=== PATIENT | male | born 1955 | race Hispanic/Latino ===

== ENCOUNTER 2020-04-24 18:04 | Inpatient (IN) | payer MEDICARE, OTHER ==
[~2020-04-24 18:04] MED LIST: Iopamidol-370 76% 500 ML 1 ML ONE
[2020-04-24] MEDS ORDERED: Boostrix 0.5 ML (Tdap) VIAL ONE (18:10)
[2020-04-24 18:28] LABS: #Eosinphils 0.2 thou/uL (0.0-0.7); #Lymphocytes 3.6 thou/uL (1.20-3.40); #Monocytes 0.8 thou/uL (0.11-0.59); #Neutrophils 5.2 thou/uL (1.40-6.50); %Basophils 0.1 % (0.0-1.0); %Eosinophils 2.5 % (0.0-10.0); %Lymphocytes 36.6 % (21.0-51.0); %Monocytes 7.9 % (0.0-10.0); Mean Corpuscular HGB CONC 34.4 g/dL (32.0-36.0); Mean Corpuscular Hemoglobin 31.3 pg (27.0-31.0); Mean Corpuscular Volume 90.9 fL (78.0-98.0); Mean Platelet Volume 8.3 fL (7.4-10.4); Platelet Count 190 thou/uL (130-400); RBC Distribution Width 11.5 % (11.5-14.5); Red Blood Cell (RBC) Count 4.78 mill/uL (4.70-6.10); White Blood Cell (WBC) Count 9.8 thou/uL (4.8-10.8)
[2020-04-24 18:33] LABS: Prothrombin Time 13.1 sec (12.0-14.7)
[2020-04-24 18:34] LABS: PTT 31.3 sec (22.9-36.1)
--- NOTE | 2020-04-24 18:50 | CT ---
CT cervical spine without contrast: 04/23/2020 COMPARISON: None HISTORY: Injury, trauma, pain TECHNIQUE: Axial CT imaging at 1.25 mm intervals through the cervical spine without contrast. Coronal and sagittal reformatted imaging obtained FINDINGS: The visualized lung apices appear unremarkable. The occipital condyles, dens, and C1-2 articulation appear within normal limits. The atlantoaxial interspace demonstrates degenerative change. The craniocervical junction and the cer vicothoracic junction demonstrate no acute findings. No prevertebral soft tissue swelling. No anterolisthesis or retrolisthesis. Multilevel cervical spine disc space narrowing and posterior osteo phyte formation noted, most prominent at C3-4 and C6-7. There is no evidence for a displaced fracture or dislocation. IMPRESSION: Cervical spine degenerative change. No acute fracture or dislocation. Results called to Dr. Davalos at 6:45 PM 04/24/2020
--- NOTE | 2020-04-24 18:53 | CT ---
Head CT without contrast: 04/24/2020 COMPARISON: None HISTORY: Injury, trauma, pain TECHNIQUE: Axial CT imaging at 2.5 mm intervals from vertex through skull base without contrast. Shashi nal and sagittal reformatted imaging obtained. FINDINGS: There is a prominent area of soft tissue swelling/subcutaneous hematoma in the supraorbital right frontal scalp with associated foci of gas consistent with laceration. The imaged paranasal sinuses and mastoid air cells are unremarkable aside from partial opacification of the posterior ethm oid air cells on the left. There is no displaced calvarial fracture. There is no midline shift or mass effect. There is no ventricular enlargement. There is small volume subarachnoid hemorrhage in the left frontal region superiorly, most prominent o n axial image 53. IMPRESSION: Small volume subarachnoid blood superiorly within the left frontal region. Prominent scal p laceration/subcutaneous hematoma in the right frontal region. Dr. Davalos made aware at 6:48 PM 04/24/2020
[2020-04-24 19:00] LABS: ALT (SGPT) 31 U/L (8-55); AST (SGOT) 25 U/L (5-34); Albumin 3.6 g/dL (3.4-4.8); Alkaline Phosphatase 101 U/L (40-110); Anion Gap 16 mmol/L (10-20); BUN (Urea Nitrogen) 16 mg/dL (8.4-25.7); Bilirubin, Total 0.9 mg/dL (0.2-1.2); Calc. Creatinine Clearance 0 mL/min (70-130); Calcium 8.6 mg/dL (7.8-10.44); Carbon Dioxide 19 mmol/L (23-31); Chloride 104 mmol/L (98-107); Globulin 3.6 g/dL (2.4-3.5); Glucose 214 mg/dL (80-115); Lipase 24 U/L (8-78); Potassium 4.1 mmol/L (3.5-5.1); Protein, Total 7.2 g/dL (5.8-8.1); Sodium 135 mmol/L (136-145)
--- NOTE | 2020-04-24 19:01 | CT ---
CT of chest, abdomen, pelvis, thoracic spine, and lumbar spine: 04/24/2020 COMPARISON: None HISTORY: Injury, trauma, pain TECHNIQUE: Axial CT imaging is obtained at 5 mm intervals from the thoracic inlet through the pubic s ymphysis with intravenous contrast. Coronal and sagittal reformatted imaging of the chest, abdomen, pelvis, thoracic spine, and lumbar spine provided. FINDINGS: Midline sternotomy wires are present. Mediastinal clips are noted. There are disconnected e picardial pacing leads present. No axillary, hilar, or mediastinal lymphadenopathy. No pleural, pericardial, or mediastinal fluid. No pneumothorax. The lung parenchyma demonstrates no acute abnormality on either side. The extraspinal osseous structures of the chest demonstrate no acute findings. A old posterior left 1 0th rib fracture is noted. The vascular structures of the chest demonstrate no acute findings. There is atherosclerotic calcific ation of the descending thoracic aorta. No free intraperitoneal air or fluid is seen. The liver, gallbladder, spleen, pancreas, and adrenal glands are unremarkable. There is a small cyst in the upper pole of the right kidney. Left kidney appears unremarkable. The prostate gland appears heterogeneous and enlarged, extending into the region of the urinary bladder base. There is a large f at-containing inguinal hernia on the left measuring 6.7 x 6.2 cm in AP/transverse dimension. Limited assessment of the bowel appears unremarkable. The appendix is unremarkable. Scattered areas o f atherosclerotic calcification are seen involving the abdominal aorta. No abdominal or pelvic lymphadenopathy. The extraspinal osseous structures of the abdomen/pelvis demonstrate no acute findings. Thoracic spine imaging demonstrates no acute fracture or evidence of dislocation. Lumbar spine imagin g demonstrates no evidence for acute fracture or dislocation. Within the mid and lower thoracic spine there is multilevel disc space narrowing and anterior osteophyte formation on the right. There is lower lumbar spine facet hypertrophy and there is prominent left lateral osteophyte formation at L1-2. IMPRESSION: Incidental findings as detailed above. No acute posttraumatic abnormality is appreciated within the chest, abdomen, pelvis, thoracic spine, or lumbar spine. Dr. Davalos made aware at 6:58 PM 04/24/2020
[2020-04-24 19:38] LABS: Phosphorus 2.5 mg/dL (2.3-4.7)
[2020-04-24] MEDS ORDERED: Lidocaine 2% PF 5 ML VIAL ONE (19:41)
[2020-04-24] MEDS ORDERED: Lidocaine 1% w/Epinephrine 1:100K 20 ML VIAL ONE (19:41)
[2020-04-24] MEDS ORDERED: hydrALAZINE 20 MG/ML VIAL SLOW IVP PRN (20:03)
[2020-04-24] MEDS ORDERED: Acetaminophen 325 MG TAB PO PRN (20:03)
[2020-04-24] MEDS ORDERED: Labetalol HCl 100 MG/20 ML VIAL SLOW IVP PRN (20:03)
[2020-04-24] MEDS ORDERED: Docusate 100 MG CAP PO PRN (20:03)
[2020-04-24] MEDS ORDERED: Ondansetron ODT 4 MG TAB PO PRN (20:04)
[2020-04-24] MEDS ORDERED: HumaLOG 300 UNITS/3 ML VIAL SC PRN (20:04)
[2020-04-24] MEDS ORDERED: Dextrose 5% in Water 1,000 ML IV PRN (20:04)
[2020-04-24] MEDS ORDERED: Ondansetron PF 4 MG/2 ML Vial IVP PRN (20:04)
[2020-04-24] MEDS ORDERED: Dextrose 50% Abboject 50 ML SYRINGE SLOW IVP PRN (20:04)
[2020-04-24] MEDS ORDERED: traMADol HCl 50 MG TAB PO PRN (20:09)
[2020-04-24] MEDS ORDERED: Sodium Chloride 0.9% 1,000 ML IV SCH (20:15)
[2020-04-24] MEDS ORDERED: Amlodipine 5 MG TAB PO SCH (20:15)
[2020-04-24] MEDS ORDERED: Labetalol HCl 100 MG/20 ML VIAL ONE (20:22)
[2020-04-24 21:14] LABS: Lactic Acid 1.5 mmol/L (0.5-2.2)
[2020-04-24 21:34] LABS: SARS-CoV-2 NAA Rapid Test Not Detected (NotDetected)
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
[2020-04-24 22:32] VITALS: BMI 27.0
[2020-04-24] MEDS: Famotidine 20 MG TAB PO SCH (22:36)
[2020-04-24] MEDS: Acetaminophen 325 MG TAB PO SCH (22:37)
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
[2020-04-24] MEDS: traMADol HCl 50 MG TAB PO SCH (22:38)
[2020-04-25 03:49] LABS: #Eosinphils 0.1 thou/uL (0.0-0.7); #Lymphocytes 2.2 thou/uL (1.20-3.40); #Monocytes 0.7 thou/uL (0.11-0.59); #Neutrophils 5.7 thou/uL (1.40-6.50); %Basophils 0.2 % (0.0-1.0); %Eosinophils 0.8 % (0.0-10.0); %Lymphocytes 25.6 % (21.0-51.0); %Monocytes 8.2 % (0.0-10.0); %Neutrophils 65.2 % (42.0-75.0); Mean Corpuscular HGB CONC 34.8 g/dL (32.0-36.0); Mean Corpuscular Hemoglobin 31.3 pg (27.0-31.0); Mean Corpuscular Volume 89.8 fL (78.0-98.0); Mean Platelet Volume 9.3 fL (7.4-10.4); Platelet Count 152 thou/uL (130-400); RBC Distribution Width 11.6 % (11.5-14.5); Red Blood Cell (RBC) Count 4.15 mill/uL (4.70-6.10); White Blood Cell (WBC) Count 8.7 thou/uL (4.8-10.8)
[2020-04-25 04:16] LABS: Anion Gap 12 mmol/L (10-20); BUN (Urea Nitrogen) 14 mg/dL (8.4-25.7); Calc. Creatinine Clearance 98 mL/min (70-130); Calcium 8.1 mg/dL (7.8-10.44); Carbon Dioxide 22 mmol/L (23-31); Chloride 104 mmol/L (98-107); Glucose 171 mg/dL (80-115); Magnesium 1.8 mg/dL (1.6-2.6); Phosphorus 3.4 mg/dL (2.3-4.7); Potassium 4.1 mmol/L (3.5-5.1); Sodium 134 mmol/L (136-145)
[2020-04-25] MEDS: Acetaminophen 325 MG TAB PO SCH ×3 (05:18→17:41)
[2020-04-25] MEDS: traMADol HCl 50 MG TAB PO SCH ×3 (05:18→17:42)
[2020-04-25] MEDS: HumaLOG 300 UNITS/3 ML VIAL SC PRN ×3 (06:30→16:36)
[2020-04-25] MEDS ORDERED: Magnesium Sulfate 2 GM in Sodium Chloride 0.9% 100 ML IV SCH (07:00)
[2020-04-25] MEDS ORDERED: Magnesium 2 GM/50 ML 2 GM in Premix Bag 1 BAG IVPB SCH (07:00)
--- NOTE | 2020-04-25 07:30 | CT ---
PRELIMINARY REPORT/[facility]/EMERGENCY AFTER HOURS PROCEDURE: EXAM: CT Head Without Intravenous Contrast. CLINICAL HISTORY: FOLLOW UP SUBARACHNOID HEMORRHAGE TECHNIQUE: Axial computed tomography images of the head/brain without intravenous contrast. COMPARISON: CT\SR - CT BRAIN WO CON - 04/24/2020 06:30 PM SOLAR SITE ASSESSMENT SPECIALIST FINDINGS: BRAIN: Again seen are small foci of subarachnoid hemorrhage within the left frontal lobe. No new intracrani al hemorrhage. No mass lesion. No CT evidence for acute territorial infarct. No midline shift. VENTRICLES: No hydrocephalus. ORBITS: The orbits are unremarkable. SINUSES AND MASTOIDS: The paranasal sinuses and mastoid air cells are clear. SOFT TISSUES: Extracranial soft tissue hematoma overlying the right frontal bone and right orbit. BONES: No acute skull fracture. IMPRESSION: Stable small foci of subarachnoid hemorrhage within the left frontal lobe. No new intracranial hemor rhage. Extracranial soft tissue hematoma overlying the right frontal bone and right orbit. ELECTRONICALLY SIGNED BY: Brenda Feng MD Apr 25, 2020 4:31:04 AM SOLAR SITE ASSESSMENT SPECIALIST This report is intended for review by the ordering physician only, in accordance of law. If you recei ve this report in error, please call [facility] at [phone]. FINAL REPORT HEAD CT WITHOUT CONTRAST: Date: 04/25/2020 COMPARISON: 04/24/2020. HISTORY: Evaluate subarachnoid hemorrhage. Trauma. FINDINGS: Redemonstration of subarachnoid blood along the left frontal sulci. The amount of subarachnoid blood has slightly decreased. No new intracranial hemorrhage. Calvarium is intact. Stable post-traumatic changes involving the scalp. IMPRESSION: 1. This report is in agreement with the initial report by [facility]. 2. Redemonstration of a small focus of subarachnoid hemorrhage along the left frontal sulci. No new intracranial hemorrhage. POS: PPP
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
--- NOTE | 2020-04-25 07:46 | RAD ---
XR Shoulder Rt 3 View STANDARD HISTORY: Right shoulder pain FINDINGS: No fracture or dislocation is identified. There are degenerative changes in the AC joint.
[2020-04-25] MEDS: Famotidine 20 MG TAB PO SCH (08:20)
[2020-04-25] MEDS ORDERED: Amlodipine 5 MG TAB PO SCH (09:00)
[2020-04-25] MEDS ORDERED: levETIRAcetam 500 MG TAB PO SCH (09:00)
[2020-04-25] MEDS ORDERED: Losartan 25 MG TAB PO SCH (09:00)
[2020-04-25 11:14] VITALS: BP 140/77
[2020-04-25 16:18] VITALS: TEMP 98.9
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
== END 2020-04-25 18:00 | disposition home or self-care (01) | DRG 87 ==
LOC: ERS 18:04 → EDBD 18:04 → IMCU/EMU 20:04
PROVIDERS: ADMIT Specialist; ATTEND Specialist
PROC: 0HQ0XZZ Repair Scalp Skin, External Approach (ICD-10-PCS; principal; 2020-04-24)
PROC: 30233R1 Transfusion of Nonautologous Platelets into Peripheral Vein, Percutaneous Approach (ICD-10-PCS; 2020-04-24)
DX: S06.6X0A Traumatic subarachnoid hemorrhage without loss of consciousness, initial encounter (principal); Z20.822 Contact with and (suspected) exposure to COVID-19; Z23 Encounter for immunization; S01.01XA Laceration without foreign body of scalp, initial encounter; E11.65 Type 2 diabetes mellitus with hyperglycemia; I25.10 Atherosclerotic heart disease of native coronary artery without angina pectoris; I10 Essential (primary) hypertension; E78.5 Hyperlipidemia, unspecified; S60.519A Abrasion of unspecified hand, initial encounter; R40.2362 Coma scale, best motor response, obeys commands, at arrival to emergency department; R40.2142 Coma scale, eyes open, spontaneous, at arrival to emergency department; R40.2252 Coma scale, best verbal response, oriented, at arrival to emergency department; V23.4XXA Motorcycle driver injured in collision with car, pick-up truck or van in traffic accident, initial encounter; Y92.410 Unspecified street and highway as the place of occurrence of the external cause; Z95.1 Presence of aortocoronary bypass graft; Z79.02 Long term (current) use of antithrombotics/antiplatelets; D64.89 Other specified anemias
CPT/HCPCS: 36415; 36416; 36430; 70450; 71260; 72125; 74177; 80048; 80053; 83605; 83690; 83735; 84100; 85025; 85610; 85730; 86850; 86900; 86901; 90471; 90715; 93005; 96374; G0390; J2001; J3475; P9035; Q9967; U0002